=== PATIENT | female | born 1980 | race American Indian/Alaskan Native ===

== ENCOUNTER 2017-04-14 08:51 | Day surgery (SDC) | payer BC ==
[2017-04-10 11:47] VITALS: BMI 27.8
[~2017-04-14 08:51] MED LIST: Bupivacaine HCl 0.25% PF (10 ml) Inj ONE; Lidocaine/Epinephrine 1% 1:100000 10 ML IJ ONE
[2017-04-14 09:31] LABS: BASO % 0.9 % (0.0-2.0); EOS # 0.1 K/uL (0.0-0.7); EOS % 1.5 % (0.0-4.0); HEMOGLOBIN 12.4 g/dL (11.0-16.0); LYMPH # 1.5 K/uL (1.0-4.3); LYMPH % 35.1 % (20.0-40.0); MEAN CELL VOLUME 86.7 fL (81.0-99.0); MEAN CORPUSCULAR HEMOGLOBIN 29.7 pg (27.0-31.0); MEAN CORPUSCULAR HGB CONC 34.2 g/dL (33.0-37.0); MEAN PLATELET VOLUME 9.3 fL (7.2-11.7); MONO # 0.4 K/uL (0.0-0.8); MONO % 9.8 % (0.0-10.0); NEUT # 2.2 K/uL (1.8-7.0); NEUT % 52.7 % (50.0-75.0); RBC 4.19 Mil/uL (3.80-5.20); RED CELL DISTRIBUTION WIDTH 12.3 % (11.5-14.5); WHITE BLOOD COUNT 4.2 K/uL (4.8-10.8)
[2017-04-14 09:41] LABS: INR 1.1; PROTHROMBIN TIME 13.1 SECONDS (9.7-12.2)
[2017-04-14 10:19] LABS: BLOOD UREA NITROGEN 14 mg/dL (7-17); GFR AFRICAN-AMERICAN > 60; GFR NON-AFRICAN AMERICAN > 60
[2017-04-14] MEDS ORDERED: Bupivacaine HCl 0.25% PF (10 ml) Inj ONE (13:03)
[2017-04-14] MEDS ORDERED: Lidocaine/Epinephrine 1% 1:100000 10 ML IJ ONE (13:04)
[2017-04-14] MEDS ORDERED: Lactated Ringer's 1,000 ML IV ONE ×2 (13:06→13:42)
[2017-04-14] MEDS: ceFAZolin 1 gm in NS 1 GM/100 ML BAG IVPB ONE ×2 (13:07→13:55)
--- NOTE | 2017-04-14 13:41 | PCM.SURG1 ---
Surgeon's Initial Post Op Note - Surgeon's Notes Surgeon: Aditi Recreation Programmer: [id number] Type of Anesthesia: Local Pre-Operative Diagnosis: R inguinal sebaceous cyst Operative Findings: see op note Post-Operative Diagnosis: R inguinal sebaceous cyst Operation Performed: Excision of R inguinal sebaceous cyst Specimen/Specimens Removed: R inguinal sebaceous cyst Estimated Blood Loss: EBL {In ML}: 5 Blood Products Given: N/A Drains Used: No Drains Post-Op Condition: Good Date of Surgery/Procedure: 04/14/17 Time of Surgery/Procedure: 13:00
[2017-04-14 14:02] VITALS: BP 97/54; PULSE 58; RESP 15; TEMP 98.7; O2SAT 100
--- NOTE | 2017-04-15 02:43 | OP ---
PROCEDURE DATE: 04/14/2017 PREOPERATIVE DIAGNOSIS: Sebaceous cyst of right groin, approximately 2 x 2 cm size. PROCEDURE: 1. Excision of sebaceous cyst of the right groin 2 x 2 cm size. 2. Layered closure of the wound, 3 x 2 cm size. SURGEON: Jordy Pennington MD TYPE OF ANESTHESIA: Local anesthesia. ESTIMATED BLOOD LOSS: Around 5 mL. DRAIN: None. PATHOLOGY: Sebaceous cyst was sent for the pathology. COMPLICATIONS: None. INTRAOPERATIVE FINDINGS: The patient had approximately 2 x 2 cm sebaceous cyst of the right groin. DESCRIPTION OF PROCEDURE: On intraoperative steps, this is a 36-year-old female who was diagnosed with sebaceous cyst of the right groin, and the patient was consented for excision of sebaceous cyst, brought to the OR, placed supine on the operating table. After induction of the anesthesia, the right groin was prepped and draped in the usual sterile fashion. Elliptical incision was made and upper and lower flap was created. The dissection was carried down deep into the subcutaneous tissue, and the sebaceous cyst was completely excised and sent off the table for the pathology. Then with proper hemostasis, the wound was irrigated. Now the wound was closed in multiple layer. A deep layer of subcu with 2-0 Vicryl, another superficial layer of the subcu with 3-0 Vicryl, and the skin with 4-0 Monocryl and dry sterile dressing was applied. The patient tolerated the procedure well. Count of the instrument and gauze was correct. There was no apparent complication. The patient was sent to the Postanesthesia Care Unit in stable condition. Jordy Pennington MD
== END 2017-04-14 14:25 | disposition home or self-care (01) ==
LOC: C.SDS 08:51
PROVIDERS: ATTEND Surgery Surgical Critical Care
DX: L73.8 Other specified follicular disorders (principal); L72.3 Sebaceous cyst
CPT/HCPCS: 11403; 36415; 80048; 84703; 85025; 85610; 85730; 88304; J0690; J7120

== ENCOUNTER 2018-02-08 12:34 | Emergency (ER) | payer BC ==
[2018-02-08 12:34] VITALS: BMI 27.8
[2018-02-08 12:49] VITALS: TEMP 98.4
[2018-02-08] MEDS ORDERED: Lidocaine 1% Inj (20ml) INFIL ONE (13:01)
[2018-02-08] MEDS ORDERED: Oxycodone/Acetaminophen 5/325 mg Tab PO STA (13:01)
[2018-02-08] MEDS ORDERED: Oxycodone/Acetaminophen 5/325 mg Tab ONE (13:06)
[2018-02-08] MEDS ORDERED: Lidocaine Hydrochloride 5 ML INJ ONE (13:06)
--- NOTE | 2018-02-08 13:16 | C.PDOC ---
History Of Present Illness 37 y/o female presents to ED complaining of painful swelling on her gluteal cleft region that started a couple days ago, midline posterior near the anus but not perirectal. States it is painful when sitting. Otherwise she denies fever or trouble passing bowel movement. Patient had a cyst on her labia before that needed to be drained. Time Seen by Provider: 02/08/18 12:58 Chief Complaint (Nursing): Abnormal Skin Integrity History Per: Patient History/Exam Limitations: no limitations Onset/Duration Of Symptoms: Days Current Symptoms Are (Timing): Still Present Past Medical History Reviewed: Historical Data, Nursing Documentation, Vital Signs Vital Signs: Last Vital Signs Temp 98.4 F 02/08/18 12:47 Pulse 88 02/08/18 12:47 Resp 18 02/08/18 12:47 BP 116/80 02/08/18 12:47 Pulse Ox 100 02/08/18 12:47 - Medical History PMH: Surgical History: Endoscopy Family History: States: No Known Family Hx - Social History Hx Tobacco Use: No Hx Alcohol Use: No Hx Substance Use: No - Immunization History Hx Tetanus Toxoid Vaccination: Yes Hx Influenza Vaccination: No Hx Pneumococcal Vaccination: No Review Of Systems Constitutional: Negative for: Fever Skin: Positive for: Other (Pain and swelling on gluteal region, midline posterior near the anus) Physical Exam - Physical Exam Appears: Non-toxic, No Acute Distress Skin: Warm, Dry Head: Atraumatic, Normacephalic Eye(s): bilateral: Normal Inspection Oral Mucosa: Moist Neck: Supple Chest: Symmetrical Cardiovascular: Rhythm Regular, No Murmur Respiratory: Normal Breath Sounds, No Rales, No Rhonchi, No Wheezing Gastrointestinal/Abdominal: Soft, No Tenderness Rectal: Other (Abscess just posterior to her anus that is fluctuant, red, swollen, and exquisitely tender) Extremity: Bilateral: Atraumatic, Normal Color And Temperature, Normal ROM Neurological/Psych: Oriented x3, Normal Speech ED Course And Treatment O2 Sat by Pulse Oximetry: 100 (RA) Pulse Ox Interpretation: Normal Progress Note: Patient treated with Percocet orally prior to procedure. - Incision & Drainage Of Abscess Anesthesia: Lidocaine 1% (infiltration) Prep Used: Betadine Procedure: Incised W/Scalpel Blade#: (11), Drained Pus, Irrigated Cavity W/Saline, Probed To Break Up Loculations, Packed W/Gauze, Cultures Obtained And Sent To Lab Medical Decision Making Medical Decision Making: Plan: --Percocet Disposition Counseled Patient/Family Regarding: Studies Performed, Diagnosis, Need For Followup, Rx Given - Disposition Referrals: Onelia Kinney MD [Staff Provider] - Disposition: HOME/ ROUTINE Disposition Time: 14:14 Condition: IMPROVED Additional Instructions: Keep the area clean and dry.Trynot to remove the packing inadvertently. Return to the ED in 2 days for packing removal. Prescriptions: Clindamycin [Cleocin] 150 mg PO QID #30 cap Instructions: Abscess Incision and Drainage (DC) Forms: [employer] (Swedish) - Clinical Impression Clinical Impression: Abscess - Scribe Statement The provider has reviewed the documentation as recorded by the Nhanibjennifer Yuen Provider Attestation: All medical record entries made by the Nhanibe were at my direction and personally dictated by me. I have reviewed the chart and agree that the record accurately reflects my personal performance of the history, physical exam, medical decision making, and the department course for this patient. I have also personally directed, reviewed, and agree with the discharge instructions and disposition.
[2018-02-08 14:29] VITALS: BP 131/85; PULSE 81; RESP 16; O2SAT 98
== END 2018-02-08 14:28 | disposition home or self-care (01) ==
LOC: C.ER 12:34
DX: K61.1 Rectal abscess (principal)

== ENCOUNTER 2018-02-10 09:32 | Emergency (ER) | payer BC ==
[2018-02-10 09:33] VITALS: BMI 27.8
[2018-02-10 09:42] VITALS: BP 130/83; PULSE 68; RESP 18; TEMP 98.2; O2SAT 100
--- NOTE | 2018-02-10 09:54 | C.PDOC ---
History Of Present Illness 37 y/o female pt presents to the ER for a wound check. Pt had an I&D on her intergluteal cleft abscess on 02/07 and drain was packed and pt received clindamycin. Pt is compliant with her medication which she takes x4 per day. She has not done a sitz bath. Pt denies fever, chills, and has no physical complaints. Time Seen by Provider: 02/10/18 09:47 Chief Complaint (Nursing): Wound Check History Per: Patient History/Exam Limitations: no limitations Onset/Duration Of Symptoms: Days Ago (x3), Abscess Past Medical History Reviewed: Historical Data, Nursing Documentation, Vital Signs Vital Signs: Last Vital Signs Temp 98.2 F 02/10/18 09:35 Pulse 68 02/10/18 09:35 Resp 18 02/10/18 09:35 BP 130/83 02/10/18 09:35 Pulse Ox 100 02/10/18 09:35 - Medical History PMH: Surgical History: Endoscopy Family History: States: No Known Family Hx - Social History Hx Tobacco Use: No Hx Alcohol Use: No Hx Substance Use: No - Immunization History Hx Tetanus Toxoid Vaccination: Yes Hx Influenza Vaccination: No Hx Pneumococcal Vaccination: No Review Of Systems Except As Marked, All Systems Reviewed And Found Negative. Constitutional: Negative for: Fever, Chills Skin: Positive for: Other (wound check on intergluteal cleft ) Physical Exam - Physical Exam Appears: Non-toxic, No Acute Distress Skin: Warm, Dry, Other (foul smelling on intergluteal cleft wound area; no cellulitis on intergluteal cleft, no discharge, packing in place, no active drainaged, no redness) Head: Normacephalic Eye(s): bilateral: Normal Inspection, EOMI Extremity: Normal ROM (x4) ED Course And Treatment O2 Sat by Pulse Oximetry: 100 (RA) Pulse Ox Interpretation: Normal Medical Decision Making Medical Decision Making: POD 2, I&D of intergluteal abscess by Dr. Bey Good compliance w Clinda QID foul smelling d/c, packing removed no Micro available yet no surrounding cellulitis this is much anterior to a pilonidal cyst area. Sitz baths encouraged. Disposition Doctor Will See Patient In The: Office Counseled Patient/Family Regarding: Studies Performed, Diagnosis - Disposition Referrals: Onelia Kinney MD [Staff Provider] - Disposition: HOME/ ROUTINE Disposition Time: 09:54 Condition: GOOD Additional Instructions: continue Clinidamycin antibiotic as prescribed until completed Advil/Motrin 600 mg every 6 hours as needed ice packs to the local area may help w localized pain. Encourage Sitz Bath's Daily dressing changes follow-up with your PMD as needed Instructions: Wound Care (DC) Forms: [employer] (Niuean), Work Excuse - Clinical Impression Clinical Impression: Wound check, abscess - Scribe Statement The provider has reviewed the documentation as recorded by the Des Andersen Do Provider Attestation: All medical record entries made by the Nhanibe were at my direction and personally dictated by me. I have reviewed the chart and agree that the record accurately reflects my personal performance of the history, physical exam, medical decision making, and the department course for this patient. I have also personally directed, reviewed, and agree with the discharge instructions and disposition.
== END 2018-02-10 10:14 | disposition home or self-care (01) ==
LOC: C.ER 09:32
DX: Z51.89 Encounter for other specified aftercare (principal); L02.31 Cutaneous abscess of buttock